=== PATIENT | female | born 1970 ===

== ENCOUNTER 2017-11-07 07:39 | Inpatient (IN) | payer MEDICAID ==
--- NOTE | 2017-11-07 08:05 | ED PDOC ---
HPI: Asthma Time Seen by Provider: 11/07/17 07:41 Chief Complaint (Nursing): Shortness Of Breath Chief Complaint (Provider): Shortness Of Breath History Per: Patient History/Exam Limitations: no limitations Onset/Duration Of Symptoms: Days (x today) Current Symptoms Are (Timing): Still Present Associated Symptoms: denies: Dyspnea Severity: Severe Additional Complaint(s): Ms. Castro is a 47 year old female, with a history of RA and asthma, who presents to the ED via EMS with complaints of worsening cough and wheezing. Patient was found by EMS with moderate respiratory distress and was given duoneb and SOLU- Medrol on the field with some improvements. When arriving to ED, patient remains tachycardiac and dyspneic, but speaking partial to full sentences. Denies fever, syncope or swelling. Patient is an active smoker. PMD: Provider TBD - Asthma History Rescue Medications: Short-acting Agonists Past Medical History Reviewed: Historical Data, Nursing Documentation, Vital Signs Vital Signs: Last Vital Signs Temp 98.8 F 11/07/17 07:49 Pulse 95 H 11/07/17 07:49 Resp 19 11/07/17 07:49 BP 132/62 11/07/17 07:49 Pulse Ox 100 11/07/17 07:49 - Medical History PMH: Asthma, Rheumatoid Arthritis - Surgical History Surgical History: No Surg Hx - Family History Family History: States: Unknown Family Hx - Social History Current smoker - smoking cessation education provided: Yes (Active Smoker) - Home Medications Home Medications: Ambulatory Orders Medication Instructions Recorded Albuterol HFA [Ventolin HFA 90 2 puff INH Q4 PRN 11/07/17 mcg/actuation (8 g)] - Allergies Allergies/Adverse Reactions: Allergies Allergy/AdvReac Type Severity Reaction Status Date / Time shellfish derived Allergy RASH Verified 11/07/17 07:49 Review of Systems ROS Statement: Except As Marked, All Systems Reviewed And Found Negative Constitutional: Negative for: Fever ENT: Negative for: Throat Pain, Other (Swelling) Respiratory: Positive for: Cough, Shortness of Breath, Wheezing Gastrointestinal: Negative for: Abdominal Pain Genitourinary Female: Negative for: Dysuria, Frequency Musculoskeletal: Negative for: Neck Pain, Shoulder Pain Skin: Negative for: Rash, Lesions Neurological: Negative for: Weakness, Numbness, Other (Syncope) Psych: Positive for: Anxiety. Negative for: Depression Physical Exam - Reviewed Nursing Documentation Reviewed: Yes Vital Signs Reviewed: Yes - Physical Exam Head Exam: Positive for: ATRAUMATIC, NORMAL INSPECTION, NORMOCEPHALIC Skin: Negative for: Cyanosis (or edema) Eye Exam: Positive for: Normal appearance ENT: Positive for: Normal ENT Inspection, Other (Indentation is intact) Neck: Positive for: Normal Cardiovascular/Chest: Positive for: Tachycardia. Negative for: Irregularly Irregular Respiratory: Positive for: Wheezing (bilaterally), Respiratory Distress ( Moderate) Pulses-Radial (L): 2+ Pulses-Radial (R): 2+ Gastrointestinal/Abdominal: Negative for: Tenderness Extremity: Positive for: Normal ROM. Negative for: Deformity, Swelling Neurologic/Psych: Positive for: Alert, Oriented (x 3), Other (Speaking partial to full sentences). Negative for: Motor/Sensory Deficits - Laboratory Results Result Diagrams: 11/07/17 08:05 11/07/17 08:05 - ECG O2 Sat by Pulse Oximetry: 100 (RA) Pulse Ox Interpretation: Normal Medical Decision Making Medical Decision Making: Time: 07:50 Plan: - EKG - BNP - CMP - hCG, Qualitative Serum Stat - CBC - Portable Chest X-Ray - Glucose, Blood, POC Stat Glucose, Blood, POC 106 mg/dL [within range] As per RN, Patient reports chest tightness, but states not as worse as before Time: 08:39 - Duoneb 3 mg/0.5 mg (3ml) UD - Magnesium Sulfate 2 gm/50 ml Water - Peak Flow Pre/Post Treatment 2 hour daxa Patient remains wheezing bilaterally and dyspneic 09:26 Discussed with Jenn. Patient will be admitted for respiratory stabilization to Dr. Okeefe Scribe Attestation: Documented by Nathanael Oropeza, acting as a scribe for Frank Vasquez III, DO Provider Scribe Attestation: All medical record entries made by the Scribe were at my direction and personally dictated by me. I have reviewed the chart and agree that the record accurately reflects my personal performance of the history, physical exam, medical decision making, and the department course for this patient. I have also personally directed, reviewed, and agree with the discharge instructions and disposition. Disposition - Clinical Impression Clinical Impression: Respiratory distress, Asthma exacerbation - Patient ED Disposition Is Patient to be Admitted: Yes Doctor Will See Patient In The: ED - Disposition Disposition Time: 09:25 Condition: FAIR - Pt Status Changed To: Hospital Disposition Of: Inpatient - Admit Certification Admit to Inpatient:: After my assessment, the patient will require hospitalization for at least two midnights. This is because of the severity of symptoms shown, intensity of services needed, and/or the medical risk in this patient being treated as an outpatient.
[2017-11-07 08:25] LABS: BASO # 0.1 K/uL (0.0-0.2); BASO % 0.9 % (0.0-2.0); EOS # 1.5 K/uL (0.0-0.7); EOS % 17.2 % (0.0-4.0); HEMOGLOBIN 12.8 g/dL (12.0-16.0); LYMPH # 2.3 K/uL (1.0-4.3); LYMPH % 26.3 % (20.0-40.0); MEAN CELL VOLUME 80.3 fl (81.0-99.0); MEAN CORPUSCULAR HEMOGLOBIN 26.9 pg (27.0-31.0); MEAN CORPUSCULAR HGB CONC 33.5 g/dL (33.0-37.0); MEAN PLATELET VOLUME 7.3 fl (7.2-11.7); MONO % 11.4 % (0.0-10.0); NEUT # 3.9 K/uL (1.8-7.0); NEUT % 44.2 % (50.0-75.0); NRBC % 0.1 % (0.0-0.0); RBC 4.77 Mil/uL (3.80-5.20); RED CELL DISTRIBUTION WIDTH 15.5 % (11.5-14.5); WHITE BLOOD COUNT 8.8 K/uL (4.8-10.8)
[2017-11-07 08:26] LABS: ALB/GLOB RATIO 1.1 (1.0-2.1); ALBUMIN 3.6 g/dL (3.5-5.0); ALT/SGPT 34 U/L (9-52); AST/SGOT 34 U/L (14-36); BLOOD UREA NITROGEN 14 mg/dl (7-17); GFR AFRICAN-AMERICAN > 60; GFR NON-AFRICAN AMERICAN > 60
[2017-11-07 08:35] LABS: B-TYPE NATRIURETIC PEPTIDE 138 pg/ml (0-450)
[2017-11-07] MEDS ORDERED: Albuterol-Ipratrop 3 mg / 0.5 (3 ml) UD INH STA ×2 (08:39→09:25)
[2017-11-07] MEDS ORDERED: Magnesium Sulfate 2 GM in Sodium Chloride 0.9% 100 ML IVPB ONE (08:39)
[2017-11-07] MEDS ORDERED: Magnesium Sulfate 2 gm/50 ml 2 GM/50 ML BAG ONE (08:59)
[2017-11-07] MEDS ORDERED: Albuterol-Ipratrop 3 mg / 0.5 (3 ml) UD ONE ×3 (08:59→12:43)
[2017-11-07] MEDS ORDERED: Magnesium Sulfate 2 gm/50 ml 2 GM/50 ML BAG IVPB ONE (09:00)
[2017-11-07] MEDS ORDERED: Promethazine DM 6.25 mg-15 mg/5 ml Syrup PO PRN (10:25)
--- NOTE | 2017-11-07 10:30 | CP.PCM.HP ---
History of Present Illness - History of Present Illness History of Present Illness: pt admitted for asthma exacerbation after having s/s for 2-3 days [employer]. using excessive amts of albuterol w/o relief. no f/c, n/v/d. 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 spo2 97% on nasal o2 and 94-95% on ra Present on Admission - Present on Admission Any Indicators Present on Admission: No Review of Systems - Respiratory Respiratory: As Per HPI, Cough, Dyspnea on Exertion, Wheezing, Chest Congestion Past Patient History - Past Social History Smoking Status: Light Smoker < 10 Cigarettes Daily - PULMONARY Hx Asthma: Yes - MUSCULOSKELETAL/RHEUMATOLOGICAL Hx Rheumatoid Arthritis: Yes - PSYCHIATRIC Hx Substance Use: No - SURGICAL HISTORY Hx Surgeries: Yes Other/Comment: fibroid removal - ANESTHESIA Hx Anesthesia: Yes Hx Anesthesia Reactions: No Meds Allergies/Adverse Reactions: Allergies Allergy/AdvReac Type Severity Reaction Status Date / Time shellfish derived Allergy RASH Verified 11/07/17 07:49 Physical Exam - Constitutional Appears: Well, Non-toxic, No Acute Distress - Head Exam Head Exam: ATRAUMATIC, NORMAL INSPECTION, NORMOCEPHALIC - Eye Exam Eye Exam: EOMI, Normal appearance, PERRL Pupil Exam: NORMAL ACCOMODATION, PERRL - ENT Exam ENT Exam: Mucous Membranes Moist, Normal Exam - Neck Exam Neck exam: Positive for: Normal Inspection - Respiratory Exam Respiratory Exam: Wheezes, NORMAL BREATHING PATTERN - Cardiovascular Exam Cardiovascular Exam: REGULAR RHYTHM, RRR, +S1, +S2 - GI/Abdominal Exam GI & Abdominal Exam: Normal Bowel Sounds, Soft. absent: Tenderness - Extremities Exam Extremities exam: Positive for: full ROM, normal capillary refill, normal inspection, pedal pulses present - Back Exam Back exam: NORMAL INSPECTION - Neurological Exam Neurological exam: Alert, CN II-XII Intact, Normal Gait, Oriented x3, Reflexes Normal - Psychiatric Exam Psychiatric exam: Normal Affect, Normal Mood - Skin Skin Exam: Dry, Intact, Normal Color, Warm Results - Vital Signs Recent Vital Signs: Last Vital Signs Temp 98.8 F 11/07/17 07:49 Pulse 95 H 11/07/17 07:49 Resp 19 11/07/17 07:49 BP 132/62 11/07/17 07:49 Pulse Ox 100 11/07/17 09:39 - Labs Result Diagrams: 11/07/17 08:05 11/07/17 08:05 Labs: Laboratory Results - last 24 hr 11/07/17 11/07/17 11/07/17 08:05 08:05 08:10 WBC 8.8 RBC 4.77 Hgb 12.8 Hct 38.3 MCV 80.3 L MCH 26.9 L MCHC 33.5 RDW 15.5 H Plt Count 280 MPV 7.3 Neut % (Auto) 44.2 L Lymph % (Auto) 26.3 [place] % (Auto) 11.4 H Eos % (Auto) 17.2 H Baso % (Auto) 0.9 Neut # (Auto) 3.9 Lymph # (Auto) 2.3 [place] # (Auto) 1.0 H Eos # (Auto) 1.5 H Baso # (Auto) 0.1 Sodium 141 Potassium 3.8 Chloride 107 Carbon Dioxide 22 Anion Gap 16 BUN 14 Creatinine 0.7 Est GFR ( Amer) > 60 Est GFR (Non-Af Amer) > 60 POC Glucose (mg/dL) 106 Random Glucose 116 H Calcium 9.0 Total Bilirubin 0.3 AST 34 ALT 34 Alkaline Phosphatase 76 NT-Pro-B Natriuret Pep 138 Total Protein 6.9 Albumin 3.6 Globulin 3.3 Albumin/Globulin Ratio 1.1 Assessment & Plan (1) Asthma exacerbation Assessment and Plan: duonebs, phenergen, advair, solumedrol o2 prn Status: Acute (2) DVT prophylaxis Assessment and Plan: scd and ae hose ambulation Status: Acute Decision To Admit - Pt Status Changed To: Hospital Disposition Of: Inpatient - Admit Certification Admit to Inpatient:: After my assessment, the patient will require hospitalization for at least two midnights. This is because of the severity of symptoms shown, intensity of services needed, and/or the medical risk in this patient being treated as an outpatient. - . Bed Request Type: Telemetry Admitting Physician: Richard Okeefe
--- NOTE | 2017-11-07 11:00 | RAD ---
HISTORY: SOB COMPARISON: No prior. FINDINGS: LUNGS: No active pulmonary disease. PLEURA: No significant pleural effusion identified, no pneumothorax apparent. CARDIOVASCULAR: Normal. OSSEOUS STRUCTURES: No significant abnormalities. VISUALIZED UPPER ABDOMEN: Normal. OTHER FINDINGS: None. IMPRESSION: No active disease.
[2017-11-07] MEDS: Albuterol-Ipratrop 3 mg / 0.5 (3 ml) UD INH SCH ×3 (12:43→19:53)
--- NOTE | 2017-11-07 14:47 | CARD ---
APPROVED REPORT EKG Measurement Heart [id number] CO 156P-3 [id number] <Conclusion> Normal sinus rhythm Normal ECG
[2017-11-07] MEDS ORDERED: methylPREDNISolone 60 MG in Sodium Chloride 0.9% 50 ML IVPB SCH (21:00)
[2017-11-08] MEDS ORDERED: Albuterol-Ipratrop 3 mg / 0.5 (3 ml) UD INH STA (03:25)
[2017-11-08] MEDS ORDERED: Pneumococcal 23-Valent Vaccine IM ONE (05:00)
[2017-11-08 06:09] LABS: BASO # 0.1 K/uL (0.0-0.2); BASO % 0.5 % (0.0-2.0); HEMOGLOBIN 12.5 g/dL (12.0-16.0); LYMPH # 0.9 K/uL (1.0-4.3); LYMPH % 5.3 % (20.0-40.0); MEAN CELL VOLUME 81.2 fl (81.0-99.0); MEAN CORPUSCULAR HEMOGLOBIN 26.5 pg (27.0-31.0); MEAN CORPUSCULAR HGB CONC 32.6 g/dL (33.0-37.0); MEAN PLATELET VOLUME 7.8 fl (7.2-11.7); MONO # 0.4 K/uL (0.0-0.8); MONO % 2.2 % (0.0-10.0); NEUT # 16.3 K/uL (1.8-7.0); PLATELET COUNT 316 K/uL (130-400); RBC 4.73 Mil/uL (3.80-5.20); RED CELL DISTRIBUTION WIDTH 16.1 % (11.5-14.5); WHITE BLOOD COUNT 17.7 K/uL (4.8-10.8)
[2017-11-08 06:19] LABS: ALB/GLOB RATIO 1.1 (1.0-2.1); ALBUMIN 3.7 g/dL (3.5-5.0); ALT/SGPT 33 U/L (9-52); AST/SGOT 27 U/L (14-36); BLOOD UREA NITROGEN 13 mg/dl (7-17); CALCIUM 9.3 mg/dL (8.4-10.2); GFR AFRICAN-AMERICAN > 60; GFR NON-AFRICAN AMERICAN > 60
[2017-11-08] MEDS: Albuterol-Ipratrop 3 mg / 0.5 (3 ml) UD INH SCH ×4 (07:09→19:07)
--- NOTE | 2017-11-08 07:22 | CP.PCM.PN ---
Subjective - Date & Time of Evaluation Date of Evaluation: 11/08/17 Time of Evaluation: 07:22 - Subjective Subjective: pt doing well. less sob. nof /c, n/v/d. comfortableon o2. lesswheezing. bw notd. elev wbc likely r/t steroids Objective - Vital Signs/Intake and Output Vital Signs (last 24 hours): Temp Pulse Resp BP Pulse Ox 98 F 81 20 113/62 95 11/08/17 05:50 11/08/17 05:50 11/08/17 05:50 11/08/17 05:50 11/08/17 05:50 - Medications Medications: Current Medications Albuterol/Ipratropium (Duoneb 3 Mg/0.5 Mg (3 Ml) Ud) 3 ml INH RQID [facility] Last Admin: 11/08/17 07:09 Dose: 3 ml Methylprednisolone (Solu-Medrol) 60 mg IV Q12@0900,2100 [facility] Last Admin: 11/07/17 22:30 Dose: 60 mg Promethazine HCl/Dextromethorphan (Phenergan Dm Syrup) 5 ml PO Q6 PRN PRN Reason: Cough - Labs Labs: 11/08/17 04:20 11/08/17 04:20 - Constitutional Appears: Well, Non-toxic, No Acute Distress - Head Exam Head Exam: ATRAUMATIC, NORMAL INSPECTION, NORMOCEPHALIC - Eye Exam Eye Exam: EOMI, Normal appearance, PERRL Pupil Exam: NORMAL ACCOMODATION, PERRL - ENT Exam ENT Exam: Mucous Membranes Moist, Normal Exam - Neck Exam Neck Exam: Full ROM, Normal Inspection. absent: Lymphadenopathy - Respiratory Exam Respiratory Exam: Wheezes, NORMAL BREATHING PATTERN Additional comments: lesswheezing today - Cardiovascular Exam Cardiovascular Exam: REGULAR RHYTHM, RRR, +S1, +S2. absent: Murmur - GI/Abdominal Exam GI & Abdominal Exam: Soft, Normal Bowel Sounds. absent: Tenderness - Extremities Exam Extremities Exam: Full ROM, Normal Capillary Refill, Normal Inspection. absent : Joint Swelling, Pedal Edema - Back Exam Back Exam: NORMAL INSPECTION - Neurological Exam Neurological Exam: Alert, Awake, CN II-XII Intact, Normal Gait, Oriented x3 - Psychiatric Exam Psychiatric exam: Normal Affect, Normal Mood - Skin Skin Exam: Dry, Intact, Normal Color, Warm Assessment and Plan (1) Asthma exacerbation Status: Acute (2) DVT prophylaxis Status: Acute - Assessment and Plan (Free Text) Assessment: (1) Asthma exacerbation Assessment and Plan: duonebs, phenergen, advair, solumedrol o2 prn walk test off o2 today Status: Acute (2) DVT prophylaxis Assessment and Plan: scd and ae hose ambulation Status: Acute
[2017-11-08 10:35] LABS: LYMPHOCYTE 4 % (20-50); MONOCYTE 3 % (0-10); NEUTROPHIL 93 % (42-75); TOTAL CELLS COUNTED 100
[2017-11-08 10:36] LABS: ANISOCYTOSIS SLIGHT; PLATELET ESTIMATE NORMAL (NORMAL)
[2017-11-08] MEDS: Azithromycin 500 MG in Sodium Chloride 0.9% 250 ML IVPB SCH (17:23)
[2017-11-08] MEDS: Albuterol-Ipratrop 3 mg / 0.5 (3 ml) UD INH PRN (23:56)
[2017-11-09 00:27] VITALS: RESP 18
[2017-11-09] MEDS: Albuterol-Ipratrop 3 mg / 0.5 (3 ml) UD INH PRN (05:24)
[2017-11-09 06:08] LABS: BASO % 0.2 % (0.0-2.0); HEMOGLOBIN 12.8 g/dL (12.0-16.0); LYMPH # 1.3 K/uL (1.0-4.3); LYMPH % 7.4 % (20.0-40.0); MEAN CELL VOLUME 82.2 fl (81.0-99.0); MEAN CORPUSCULAR HEMOGLOBIN 26.3 pg (27.0-31.0); MEAN PLATELET VOLUME 7.8 fl (7.2-11.7); MONO # 0.6 K/uL (0.0-0.8); MONO % 3.6 % (0.0-10.0); NEUT # 15.2 K/uL (1.8-7.0); NEUT % 88.8 % (50.0-75.0); RBC 4.86 Mil/uL (3.80-5.20); RED CELL DISTRIBUTION WIDTH 16.4 % (11.5-14.5); WHITE BLOOD COUNT 17.2 K/uL (4.8-10.8)
[2017-11-09 06:27] LABS: ALB/GLOB RATIO 1.1 (1.0-2.1); ALT/SGPT 39 U/L (9-52); AST/SGOT 30 U/L (14-36); BLOOD UREA NITROGEN 15 mg/dl (7-17); CALCIUM 9.5 mg/dL (8.4-10.2); GFR AFRICAN-AMERICAN > 60; GFR NON-AFRICAN AMERICAN > 60
[2017-11-09] MEDS: Albuterol-Ipratrop 3 mg / 0.5 (3 ml) UD INH SCH ×2 (07:48→10:59)
--- NOTE | 2017-11-09 07:48 | CP.PCM.PN ---
Subjective - Date & Time of Evaluation Date of Evaluation: 11/09/17 Time of Evaluation: 07:30 - Subjective Subjective: pt doing well, no f/c, n/v/d. less wheezing, off o2. pt w/ more exercise tolerance Objective - Vital Signs/Intake and Output Vital Signs (last 24 hours): Temp Pulse Resp BP Pulse Ox 97.6 F 60 18 125/73 95 11/09/17 05:09 11/09/17 05:09 11/09/17 05:09 11/09/17 05:09 11/09/17 05:09 - Medications Medications: Current Medications Albuterol/Ipratropium (Duoneb 3 Mg/0.5 Mg (3 Ml) Ud) 3 ml INH RQID [facility] Last Admin: 11/08/17 19:07 Dose: 3 ml Albuterol/Ipratropium (Duoneb 3 Mg/0.5 Mg (3 Ml) Ud) 3 ml INH RQ6 PRN PRN Reason: Shortness of Breath Last Admin: 11/09/17 05:24 Dose: 3 ml Azithromycin 500 mg/ Sodium (Chloride) 250 mls @ 250 mls/hr IVPB DAILY [facility] PRN Reason: Protocol Last Admin: 11/08/17 17:23 Dose: 250 mls/hr Methylprednisolone (Solu-Medrol) 60 mg IV Q12@0900,2100 [facility] Last Admin: 11/08/17 21:42 Dose: 60 mg Promethazine HCl/Dextromethorphan (Phenergan Dm Syrup) 5 ml PO Q6 PRN PRN Reason: Cough Last Admin: 11/08/17 09:07 Dose: 5 ml - Labs Labs: 11/09/17 04:20 11/09/17 04:20 - Constitutional Appears: Well, Non-toxic, No Acute Distress - Head Exam Head Exam: ATRAUMATIC, NORMAL INSPECTION, NORMOCEPHALIC - Eye Exam Eye Exam: EOMI, Normal appearance, PERRL Pupil Exam: NORMAL ACCOMODATION, PERRL - ENT Exam ENT Exam: Mucous Membranes Moist, Normal Exam - Neck Exam Neck Exam: Full ROM, Normal Inspection. absent: Lymphadenopathy - Respiratory Exam Respiratory Exam: NORMAL BREATHING PATTERN Additional comments: much improved wheezing, good air entry - Cardiovascular Exam Cardiovascular Exam: REGULAR RHYTHM, +S1, +S2. absent: Murmur - GI/Abdominal Exam GI & Abdominal Exam: Soft, Normal Bowel Sounds. absent: Tenderness - Extremities Exam Extremities Exam: Full ROM, Normal Capillary Refill, Normal Inspection. absent : Joint Swelling, Pedal Edema - Back Exam Back Exam: NORMAL INSPECTION - Neurological Exam Neurological Exam: Alert, Awake, CN II-XII Intact, Normal Gait, Oriented x3 - Psychiatric Exam Psychiatric exam: Normal Affect, Normal Mood - Skin Skin Exam: Dry, Intact, Normal Color, Warm Assessment and Plan (1) Asthma exacerbation Status: Acute (2) DVT prophylaxis Status: Acute - Assessment and Plan (Free Text) Assessment: (1) Asthma exacerbation Assessment and Plan: duonebs, phenergen, advair, solumedrol o2 prn walk test off o2 today likely dc today Status: Acute (2) DVT prophylaxis Assessment and Plan: scd and ae hose ambulation Status: Acute
[2017-11-09 08:05] VITALS: O2SAT 96
[2017-11-09] MEDS: Azithromycin 500 MG in Sodium Chloride 0.9% 250 ML IVPB SCH (12:03)
[2017-11-09 12:16] VITALS: BP 124/75; PULSE 65; TEMP 98.3
--- NOTE | 2017-11-11 08:29 | CP.PCM.DIS ---
Provider - Provider Date of Admission: 11/07/17 09:25 Attending physician: Richard Okeefe MD Time Spent in preparation of Discharge (in minutes): 15 Diagnosis - Discharge Diagnosis (1) Asthma exacerbation Status: Acute (2) DVT prophylaxis Status: Acute Hospital Course - Lab Results Lab Results: Most Recent Lab Values WBC 17.2 K/uL (4.8-10.8) H 11/09/17 04:20 RBC 4.86 Mil/uL (3.80-5.20) 11/09/17 04:20 Hgb 12.8 g/dL (12.0-16.0) 11/09/17 04:20 Hct 40.0 % (34.0-47.0) 11/09/17 04:20 MCV 82.2 fl (81.0-99.0) 11/09/17 04:20 MCH 26.3 pg (27.0-31.0) L 11/09/17 04:20 MCHC 32.0 g/dL (33.0-37.0) L 11/09/17 04:20 RDW 16.4 % (11.5-14.5) H 11/09/17 04:20 Plt Count 298 K/uL (130-400) 11/09/17 04:20 MPV 7.8 fl (7.2-11.7) 11/09/17 04:20 Neut % (Auto) 88.8 % (50.0-75.0) H 11/09/17 04:20 Lymph % (Auto) 7.4 % (20.0-40.0) L 11/09/17 04:20 [place] % (Auto) 3.6 % (0.0-10.0) 11/09/17 04:20 Eos % (Auto) 0.0 % (0.0-4.0) 11/09/17 04:20 Baso % (Auto) 0.2 % (0.0-2.0) 11/09/17 04:20 Neut # (Auto) 15.2 K/uL (1.8-7.0) H 11/09/17 04:20 Lymph # (Auto) 1.3 K/uL (1.0-4.3) 11/09/17 04:20 [place] # (Auto) 0.6 K/uL (0.0-0.8) 11/09/17 04:20 Eos # (Auto) 0.0 K/uL (0.0-0.7) 11/09/17 04:20 Baso # (Auto) 0.0 K/uL (0.0-0.2) 11/09/17 04:20 Neutrophils % (Manual) 93 % (42-75) H 11/08/17 04:20 Lymphocytes % (Manual) 4 % (20-50) L 11/08/17 04:20 Monocytes % (Manual) 3 % (0-10) 11/08/17 04:20 Platelet Estimate Normal (NORMAL) 11/08/17 04:20 Anisocytosis (manual) Slight 11/08/17 04:20 Sodium 142 mmol/l (132-148) 11/09/17 04:20 Potassium 4.6 MMOL/L (3.6-5.0) 11/09/17 04:20 Chloride 103 mmol/L (98-107) 11/09/17 04:20 Carbon Dioxide 25 mmol/L (22-30) 11/09/17 04:20 Anion Gap 19 (10-20) 11/09/17 04:20 BUN 15 mg/dl (7-17) 11/09/17 04:20 Creatinine 0.8 mg/dl (0.7-1.2) 11/09/17 04:20 Est GFR ( Amer) > 60 11/09/17 04:20 Est GFR (Non-Af Amer) > 60 11/09/17 04:20 POC Glucose (mg/dL) 106 mg/dL (65-110) 11/07/17 08:10 Random Glucose 141 mg/dL (65-105) H 11/09/17 04:20 Calcium 9.5 mg/dL (8.4-10.2) 11/09/17 04:20 Total Bilirubin 0.3 mg/dl (0.2-1.3) 11/09/17 04:20 AST 30 U/L (14-36) 11/09/17 04:20 ALT 39 U/L (9-52) 11/09/17 04:20 Alkaline Phosphatase 63 U/L (38-126) 11/09/17 04:20 NT-Pro-B Natriuret Pep 138 pg/ml (0-450) 11/07/17 08:05 Total Protein 7.6 G/DL (6.3-8.2) 11/09/17 04:20 Albumin 4.0 g/dL (3.5-5.0) 11/09/17 04:20 Globulin 3.6 gm/dL (2.2-3.9) 11/09/17 04:20 Albumin/Globulin Ratio 1.1 (1.0-2.1) 11/09/17 04:20 - Hospital Course Hospital Course: duonebs, solumedrol cough meds, zithromax Discharge Exam - Head Exam Head Exam: ATRAUMATIC, NORMAL INSPECTION, NORMOCEPHALIC Discharge Plan - Discharge Medications Prescriptions: Albuterol HFA [Ventolin HFA 90 mcg/actuation (8 g)] 2 puff INH Q4 PRN #1 inhaler PRN Reason: Shortness Of Breath Albuterol/Ipratropium [Duoneb 3 mg/0.5 mg (3 ml) UD] 3 ml INH RQID #100 neb Azithromycin [Zithromax] 250 mg PO DAILY #3 tab predniSONE [Prednisone] 50 mg PO DAILY #15 tab Promethazine DM [Phenergan DM Syrup] 5 ml PO Q6 PRN #250 ml PRN Reason: Cough Salmeterol Xinafoate/Fluticaso [Advair Hfa 230/21] 1 aer IH Q12 #1 aer - Follow Up Plan Condition: FAIR Disposition: HOME/ ROUTINE Instructions: Quitting Smoking for Older Adults, Asthma, Adult (DC) Additional Instructions: follow up in 2 days with . final dx-asthma exacerbation meds per med rec, f/u rmg 2 days, rted prn, Referrals: Yuly Taylor DO [[facility]] -
== END 2017-11-09 14:00 | disposition home or self-care (01) | DRG 97 ==
LOC: H.ER 07:39 → H.ERHOLD 09:25 → H.TEL 15:48
PROVIDERS: ADMIT Family Medicine; ATTEND Family Medicine
PROC: 3E0234Z Introduction of Serum, Toxoid and Vaccine into Muscle, Percutaneous Approach (ICD-10-PCS; principal; 2017-11-08)
DX: J45.901 Unspecified asthma with (acute) exacerbation (principal); M06.9 Rheumatoid arthritis, unspecified; F17.210 Nicotine dependence, cigarettes, uncomplicated; Z91.013 Allergy to seafood; Z23 Encounter for immunization

== ENCOUNTER 2018-11-20 08:04 | Emergency (ER) | payer MEDICAID ==
[2018-11-20 08:06] VITALS: TEMP 98.5; BMI 32.9
[2018-11-20] MEDS ORDERED: Albuterol-Ipratrop 3 mg / 0.5 (3 ml) UD INH STA ×3 (08:21→08:23)
--- NOTE | 2018-11-20 08:28 | ED PDOC ---
HPI: SOB/CHF/COPD Time Seen by Provider: 11/20/18 08:17 Chief Complaint (Nursing): Cough, Cold, Congestion Chief Complaint (Provider): Cough, Wheezing, SOB History Per: Patient History/Exam Limitations: no limitations Onset/Duration Of Symptoms: Days (x4-5) Current Symptoms Are (Timing): Still Present Additional Complaint(s): Patient is a 48 y/o female with a PMHx of arthritis, asthma, and chronic back pain who presents to the ED for evaluation of cough, shortness of breath, and wheezing for the past four to five days. Furthermore, patient began experiencing chest tightness, hence, prompting her ED visit. Patient claims for the past couple of days she had also been experiencing leg swelling bilaterally that recently resolved. Patient states she has frequent asthma attacks that she normally treats with her Albuterol nebulizer and medication such as Flovan, how ever, this time her symptoms persisted. Patient denies chest pain. Of note, patient indicated she has never been intubated and that it has been a year since she was last seen in the ED. PCP: Dr. Yuly Taylor ([place]) Past Medical History Reviewed: Historical Data, Nursing Documentation, Vital Signs Vital Signs: Last Vital Signs Temp 98.5 F 11/20/18 08:05 Pulse 79 11/20/18 08:05 Resp 20 11/20/18 08:05 BP 141/84 11/20/18 08:05 Pulse Ox 97 11/20/18 08:05 - Medical History PMH: Arthritis, Asthma, Rheumatoid Arthritis, Chronic Pain (Back) - Surgical History Other surgeries: Fibroid Surgery - Family History Family History: States: Unknown Family Hx - Home Medications Home Medications: Ambulatory Orders Medication Instructions Recorded Albuterol/Ipratropium [Duoneb 3 3 ml INH RQID #100 neb 11/09/17 mg/0.5 mg (3 ml) UD] Azithromycin [Zithromax] 250 mg PO DAILY #3 tab 11/09/17 Promethazine DM [Phenergan DM 5 ml PO Q6 PRN #250 ml 11/09/17 Syrup] predniSONE [Prednisone] 50 mg PO DAILY #15 tab 11/09/17 Albuterol HFA [Ventolin HFA 90 2 puff INH Q4 PRN #1 inhaler 04/14/19 mcg/actuation (8 g)] Prednisone 50 mg PO DAILY #5 tablet 11/20/18 Salmeterol Xinafoate/Fluticaso 1 aer IH Q12 #1 aer 11/20/18 [Advair Hfa 230/21] - Allergies Allergies/Adverse Reactions: Allergies Allergy/AdvReac Type Severity Reaction Status Date / Time shellfish derived Allergy RASH Verified 11/20/18 08:16 Review of Systems ROS Statement: Except As Marked, All Systems Reviewed And Found Negative Cardiovascular: Positive for: Other (Chest Tightness). Negative for: Chest Pain Respiratory: Positive for: Cough, Shortness of Breath, Wheezing Physical Exam - Reviewed Nursing Documentation Reviewed: Yes Vital Signs Reviewed: Yes - Physical Exam Appears: Positive for: Uncomfortable Head Exam: Positive for: ATRAUMATIC, NORMAL INSPECTION, NORMOCEPHALIC Skin: Positive for: Normal Color, Warm, DRY Eye Exam: Positive for: EOMI, Normal appearance, PERRL Neck: Positive for: Normal, Painless ROM, Supple Cardiovascular/Chest: Positive for: Tachycardia Respiratory: Positive for: Wheezing (Diffuse Bilaterally) Gastrointestinal/Abdominal: Positive for: Normal Exam, Soft. Negative for: Tenderness Back: Positive for: Normal Inspection. Negative for: L CVA Tenderness, R CVA Tenderness, Vertebral Tenderness Extremity: Positive for: Normal ROM. Negative for: Pedal Edema, Deformity Neurological/Psych: Positive for: Alert, Oriented (x3) - Laboratory Results Result Diagrams: 11/20/18 08:20 11/20/18 08:20 - ECG ECG Rhythm: Positive for: Normal QRS, Normal ST Segment, Sinus Rhythm (Normal) Rate: 82 O2 Sat by Pulse Oximetry: 97 (RA) Pulse Ox Interpretation: Normal - Radiology X-Ray: Viewed By Me, Read By Radiologist X-Ray Interpretation: No Acute Disease Nebulizer Treatments/Peak Flow - Duonebs Number of Bronchodilator Doses given?: 3 - Pre/Post Peak Flow Pre Treatment Peak Flow: 250 Post treatment Peak Flow: 350 - Steroid Treatment Steroid: IV - Clinical Response Clinical Response: Improved Medical Decision Making Medical Decision Making: Time: 820 Impression: Shortness of Breath and Wheezing DDx includes but not limited to asthma exacerbation; r/o CHF and PNA. Plan: EKG BNP BMP Troponin I CBC CXR Duoneb 3 ml INH (x3) SOLU-Medrol 125 mg IVP IV Insertion Peak Flow Pre/Post TX (x2) Time: 935 On reevaluation patient states her symptoms have not significantly improved, noting that she experiences dyspnea on exertion. Patient's peak flow is lower than normal at 225. Will administer Magnesium. Time: 950 FINDINGS: LUNGS: Clear. PLEURA: Elevation of the right hemidiaphragm. No pneumothorax or pleural fluid seen. CARDIOVASCULAR: No aortic atherosclerotic calcification present. Normal. OSSEOUS STRUCTURES: Unchanged. VISUALIZED UPPER ABDOMEN: Normal. OTHER FINDINGS: None. IMPRESSION: No active disease. Time: 1040 Labs remarkable for elevated WBC. Scribe Attestation: Documented by Star Wyatt, acting as a scribe for Arlene Titus MD. Provider Scribe Attestation: All medical record entries made by the Scribe were at my direction and persona norbert dictated by me. I have reviewed the chart and agree that the record accurately reflects my personal performance of the history, physical exam, medical decision making, and the department course for this patient. I have also personally directed, reviewed, and agree with the discharge instructions and disposition. Disposition - Clinical Impression Clinical Impression: Asthma exacerbation - Patient ED Disposition Is Patient to be Admitted: No Doctor Will See Patient In The: Office Counseled Patient/Family Regarding: Studies Performed, Diagnosis, Need For Followup - Disposition Referrals: Yuly Taylor DO [Family Provider] - Disposition: Routine/Home Disposition Time: 11:25 Condition: IMPROVED Additional Instructions: DAR OSMAN, thank you for letting us take care of you today. Your provider was Arlene Titus MD and you were treated for POSS ASTHMA ATTACK. The emergency medical care you received today was directed at your acute symptoms. If you were prescribed any medication, please fill it and take as directed. It may take several days for your symptoms to resolve. Return to the Emergency Department if your symptoms worsen, do not improve, or if you have any other problems. Please contact your doctor or call one of the physicians/clinics you have been referred to that are listed on the Patient Visit Information form that is included in your discharge packet. Bring any paperwork you were given at discharge with you along with any medications you are taking to your follow up visit. Our treatment cannot replace ongoing medical care by a primary care provider outside of the emergency department. Thank you for allowing the [facility] team to be part of your care today. Instructions: Asthma in Adults
[2018-11-20] MEDS ORDERED: Albuterol-Ipratrop 3 mg / 0.5 (3 ml) UD ONE (08:36)
[2018-11-20 09:16] LABS: BASO # 0.1 K/uL (0.0-0.2); BASO % 0.6 % (0.0-2.0); EOS % 0.1 % (0.0-4.0); HEMOGLOBIN 13.5 g/dL (12.0-16.0); LYMPH # 2.5 K/uL (1.0-4.3); LYMPH % 16.2 % (20.0-40.0); MEAN CELL VOLUME 80.8 fl (81.0-99.0); MEAN CORPUSCULAR HEMOGLOBIN 26.2 pg (27.0-31.0); MEAN CORPUSCULAR HGB CONC 32.5 g/dL (33.0-37.0); MEAN PLATELET VOLUME 7.4 fl (7.2-11.7); MONO % 6.5 % (0.0-10.0); NEUT # 11.6 K/uL (1.8-7.0); NEUT % 76.6 % (50.0-75.0); RBC 5.15 Mil/uL (3.80-5.20); RED CELL DISTRIBUTION WIDTH 16.6 % (11.5-14.5); WHITE BLOOD COUNT 15.1 K/uL (4.8-10.8)
[2018-11-20 09:27] LABS: BLOOD UREA NITROGEN 17 mg/dl (7-17); CALCIUM 9.4 mg/dL (8.4-10.2); GFR NON-AFRICAN AMERICAN > 60
[2018-11-20] MEDS ORDERED: Magnesium Sulfate 2 gm/50 ml 2 GM/50 ML BAG IVPB ONE (09:34)
[2018-11-20 09:40] LABS: B-TYPE NATRIURETIC PEPTIDE 35.5 pg/ml (0-450)
[2018-11-20] MEDS ORDERED: Magnesium Sulfate 2 gm/50 ml 2 GM/50 ML BAG ONE (09:43)
[2018-11-20 09:45] VITALS: BP 148/87
--- NOTE | 2018-11-20 09:54 | RAD ---
Date of service: 11/20/2018 PROCEDURE: CHEST RADIOGRAPH, 1 VIEW HISTORY: wheezing COMPARISON: Chest radiograph dated 11/07/2017. FINDINGS: LUNGS: Clear. PLEURA: Elevation of the right hemidiaphragm. No pneumothorax or pleural fluid seen. CARDIOVASCULAR: No aortic atherosclerotic calcification present. Normal. OSSEOUS STRUCTURES: Unchanged. VISUALIZED UPPER ABDOMEN: Normal. OTHER FINDINGS: None. IMPRESSION: No active disease.
[2018-11-20 10:07] VITALS: O2SAT 97
[2018-11-20 11:16] VITALS: RESP 18
[2018-11-20 11:24] VITALS: PULSE 82
--- NOTE | 2018-11-20 21:17 | CARD ---
APPROVED REPORT Date of service: 11/20/2018 EKG Measurement Heart [id number] <Conclusion> Normal sinus rhythm Normal ECG
== END 2018-11-20 11:40 | disposition home or self-care (01) ==
LOC: H.ER 08:04
DX: J45.901 Unspecified asthma with (acute) exacerbation (principal); D72.829 Elevated white blood cell count, unspecified
CPT/HCPCS: 71045; 80048; 83880; 84484; 85025; 93005; 94640; 96374; 99284; J2930